=== PATIENT | male | born 1970 | race Caucasian/White ===

== ENCOUNTER 2016-12-20 20:05 | Emergency (ER) | payer OTHER ==
[~2016-12-20] VITALS: Ht 177.8 cm; Wt 104.5 kg
[2016-12-20 20:08] VITALS: BP 128/86; PULSE 67; RESP 18; O2SAT 97
--- NOTE | 2016-12-20 20:49 | ED.REPORT ---
HPI-Extremity Problem Lower Date of Service Dec 20, 2016 ED Provider: Dr. Damon Pt is a generally healthy male 46 y/o male presenting to the ED c/o redness, pain, and swelling just proximal to the right great toe onset yesterday morning. He has experienced this previously very infrequently but he never saw a provider for it. He has been eating more beef than normal. He denies fever, chills. Nursing Notes Stated Complaint: SWOLLEN AND PAINFUL RIGHT BIG TOE Chief Complaint: Extremity Trauma Nursing Notes Reviewed: Yes Allergies: Coded Allergies: No Known Allergies (Unverified , 12/20/16) Scheduled PRN Naproxen (Naproxen) 500 Mg Tablet.dr 500 MG PO BID PRN PRN For Pain General Time Seen by MD: 20:48 Chief Complaint Other (R great toe pain) Hx Obtained From: Patient Arrived By: Walk-in Onset Occurred: Yesterday Symptom Duration: Since onset Location: : Toe right 1 Quality: Painful Severity: Current: Moderate Severity: Maximum: Moderate Similar Sx Previous: Yes Past Medical History Past Medical History SHAUNNA Hiatal hernia GERD Past Surgical History None reported Smoking History Unknown if Ever Smoker Social History Other Social History: Ambulatory Status Independent Review of Systems Constitutional: Denies: Chills, Fever Musculoskeletal: Reports: Joint pain Skin: Reports Rash, Reports Swelling Complete sys rev & neg: except as marked. Physical Exam Initial Vital Signs Vital Signs (First) Date Time Temp Pulse Resp B/P Pulse Ox O2 Delivery O2 Flow Rate FiO2 12/20/16 20:08 36.8 67 18 128/86 97 Room Air Initial VS: Reviewed, Vital signs normal Head / Eyes: Atraumatic, Normocephalic ENT: Mucous membranes moist, Conjunctiva normal, No scleral icterus Neck: Supple, Full range of motion Respiratory: Breath sounds normal, Clear to auscultation, No respiratory distress Cardiovascular: Regular rate & rhythm, Heart sounds normal, Intact distal pulses Abdomen / GI: No distention Upper Extremities: Vascular intact, Neuro intact Skin: Warm, Dry, No cyanosis Neurologic: Alert, Oriented, Nonfocal Psychiatric: Mood/affect normal, Behavior normal, Normal thought content Lower Extremity / Pelvis / MS: No deformity, Neurologic intact, Vascular intact Ankle / Foot: Atraumatic, No deformity, Neurologic intact, Vascular intact Right foot: Pain and swelling to the first metatarsal with redness, warmth, and tenderness General/Constitutional: Awake, Alert, No acute distress, Well appearing, Cooperative, Not toxic appearing Interpretation & Diagnostics Lab Results Interpretation Result Diagram: 12/20/16 2129 Test 12/20/16 21:29 White Blood Count 9.5th/mm3 (3.8-10.1) Red Blood Count 4.65mil/mm3 (4.40-5.80) Hemoglobin 15.0g/dL (13.8-17.2) Hematocrit 41.8% (41.0-50.0) Mean Corpuscular Volume 89.9fL (81-100) Mean Corpuscular Hemoglobin 32.3pg (27.0-35.0) Mean Corpuscular Hemoglobin Concent 35.9% (32.0-37.0) Red Cell Distribution Width 12.2% (12.3-15.4) Platelet Count 211bil/L (150-400) Uric Acid 7.5mg/dL (2.6-7.2) Hold Thomas Top Tube Received (Received) Re-Eval/Medical Decision Med Decision/Clinical Course The patient presents with pretty sudden pain to the MTP of his great toe. He has had 4 of these episodes in the past which resolved over a few days. His symptoms are consistent with gout. I explained the options of the possibility that this could be septic arthritis versus gouty arthritis and an aspiration would be the best thing to decide however is very difficult in this joint. The patient agreed to do symptomatic treatment if he is worsening he realizes he may need to return for further evaluation. Patient does have an elevated uric acid level, with his history which seems consistent with gout. The partial list of differential diagnoses considered were septic arthritis, gout, and cellulitis. Re-Evaluation/Progress : Time of Eval: 22:04 Re-Evaluation/Progress Note: Pt rechecked. Discussed lab findings and likely dx of gout. Informed pt of plan for discharge. Pt understands and agrees with plan for discharge. F/U instructions and RTER warnings given. All questions addressed. Counseled Regarding: Diagnosis, Lab results, Need for follow-up, When/why to return to ED Discharge & Departure Impression: Primary Impression: Gout involving toe of right foot Gout etiology: unspecified cause Chronicity: acute Qualified Code: M10.9 - Gout, unspecified Disposition: Home Discharge Condition All VS Reviewed: Yes Condition: Stable Patient Instructions: Gout (ED) Additional Instructions: I suspect the cause of your symptoms is gout, inflammation of the joint. Your uric acid which is commonly elevated in the presence of active gout was slightly elevated today. Your white blood cell count was normal which makes infection less likely. Take Naproxen as directed. Return to the emergency department if you develop fever, streaking redness up your leg, vomiting, increased pain, or for other concerning symptoms. Follow-up with your primary care doctor next week for a recheck. Referrals: Gabrielle Kim MD Scribe Attestation Portions of this note were transcribed by Stevie Velazquez. I, Dr. Damon personally performed the history, physical exam and medical decision-making; I reviewed and confirmed the accuracy of the information in the transcribed note. copies to: Gabrielle Kim MD, Jena M MD Dec 20, 2016 20:49 STEVIE VELAZQUEZ Dec 20, 2016 20:54
[2016-12-20 21:32] LABS: Mean Corpuscular Hemoglobin 32.3 pg (27.0-35.0); Mean Corpuscular Volume 89.9 fL (81-100)
[2016-12-20] MEDS ORDERED: NAPR500T5 PO (22:09)
[2016-12-20 22:17] VITALS: BP 126/82; PULSE 66; RESP 16; O2SAT 98
== END 2016-12-20 22:22 | disposition home or self-care (01) ==
LOC: SED 20:05
DX: M10.071 Idiopathic gout, right ankle and foot (principal); K21.9 Gastro-esophageal reflux disease without esophagitis; M19.90 Unspecified osteoarthritis, unspecified site